=== PATIENT | male | born 2000 | race African-American/Black ===

== ENCOUNTER 2023-12-11 11:56 | Inpatient (IN) | payer BC ==
[2023-12-11 12:44] VITALS: BMI 21.6
[2023-12-11] MEDS ORDERED: ONDANSETRON *ODT* 4 MG TABLET SL PRN (14:03)
[2023-12-11] MEDS ORDERED: NALOXONE HCL (KLOXXADO) 8 MG SPRAY NS PRN (14:03)
[2023-12-11] MEDS ORDERED: IBUPROFEN 600 MG TABLET (FP) PO PRN (14:03)
[2023-12-11] MEDS ORDERED: IBUPROFEN 400 MG TABLET (FP) PO PRN (14:03)
[2023-12-11] MEDS ORDERED: METHOCARBAMOL 500 MG TABLET PO PRN (14:03)
[2023-12-11] MEDS ORDERED: BENZOCAINE/MENTHOL (CHLORASEPTIC ) LOZENGE MM PRN (14:03)
[2023-12-11] MEDS ORDERED: POLYETHYLENE GLYCOL (HEALTHYLAX) 3350 17 GM PACKET PO PRN (14:03)
[2023-12-11] MEDS ORDERED: DICYCLOMINE HCL 10 MG CAPSULE PO PRN (14:03)
[2023-12-11] MEDS ORDERED: BISMUTH SUBSALICYLATE 262 MG/15 ML BTL PO PRN (14:03)
[2023-12-11] MEDS ORDERED: BENZONATATE 200 MG CAPSULE PO PRN (14:03)
[2023-12-11] MEDS ORDERED: NALOXONE HCL 0.4 MG/ML VIAL IM PRN (14:03)
[2023-12-11] MEDS ORDERED: MAG HYDROX/AL HYDROX/SIMETH 30 ML UNIT-DOSE CUP PO PRN (14:03)
[2023-12-11] MEDS ORDERED: ACETAMINOPHEN 325 MG TABLET (FP) PO PRN (14:03)
[2023-12-11] MEDS ORDERED: LOPERAMIDE HCL 2 MG CAPSULE PO PRN (14:03)
[2023-12-11] MEDS ORDERED: guaiFENesin 600 MG TABLET.ER (FP) PO PRN (14:03)
[2023-12-11] MEDS ORDERED: MAGNESIUM HYDROX 2400MG/30ML ORAL SUSPENSION 30 ML CUP PO PRN (14:03)
[2023-12-11] MEDS ORDERED: hydrOXYzine PAMOATE 25 MG CAPSULE (FP) PO PRN (14:03)
[2023-12-11] MEDS ORDERED: ALBUTEROL SO4 HFA INHALER IH PRN (14:07)
[2023-12-11] MEDS ORDERED: hydrOXYzine PAMOATE 25 MG CAPSULE (FP) PO ONE (14:20)
[2023-12-11] MEDS: NICOTINE POLACRILEX 2 MG GUM BUC PRN (20:41)
[2023-12-11] MEDS: THIAMINE HCL 100 MG TABLET (FP) PO SCH (22:25)
[2023-12-11] MEDS: MELATONIN 5 MG TABLETS PO SCH (22:25)
[2023-12-12] MEDS: NICOTINE 14 MG/24 HOURS TOPICAL PATCH TD SCH (10:06)
[2023-12-12] MEDS: PRENATAL VITAMINS W/ FOLIC ACID TABLET (FP) PO SCH (10:07)
[2023-12-12 12:02] LABS: HEMATOCRIT 42.3 % (35.4-49); HEMOGLOBIN 13.6 GM/dL (11.7-16.9); MCH 25.7 pg (25.7-33.7); MCHC 32.1 g/dl (32.0-35.9); MEAN PLT VOLUME 7.9 fl (7.5-11.1); PLATELET COUNT 304 10^3/uL (134-434); RBC 5.29 M/mm3 (4.00-5.60); RDW 14.3 % (11.9-15.9); WHITE BLOOD COUNT 3.8 K/mm3 (4.0-10.0)
[2023-12-12 12:06] LABS: CHLORIDE 104 mmol/L (98-107); POTASSIUM 4.5 mmol/L (3.5-5.1); SODIUM 140 mmol/L (136-145)
[2023-12-12 12:13] LABS: ALBUMIN 4.2 g/dl (3.4-5.0); BLOOD UREA NITROGEN 12.3 mg/dL (7-18)
[2023-12-12 12:15] LABS: ANION GAP 10 mmol/L (4-13); CO2 26 mmol/L (21-32); GLUCOSE,RANDOM 77 mg/dL (74-106)
[2023-12-12 12:16] LABS: CREATININE 0.9 mg/dL (0.55-1.3); SGOT/AST 38 U/L (15-37); SGPT/ALT 25 U/L (13-61)
[2023-12-12 12:18] LABS: TOT PROT 7.8 g/dl (6.4-8.2)
[2023-12-12 12:19] LABS: ALK PHOS 101 U/L (45-117)
[2023-12-13 09:16] VITALS: RESP 20
[2023-12-13 09:19] VITALS: BP 109/67; PULSE 78; TEMP 98
== END 2023-12-13 08:55 | disposition home or self-care (01) | DRG 897 ==
LOC: YASAS 11:56 → Y6N 14:29
PROVIDERS: ADMIT Allergy & Immunology; ATTEND Surgery
PROC: HZ2ZZZZ Detoxification Services for Substance Abuse Treatment (ICD-10-PCS; principal; 2023-12-11)
DX: F10.230 Alcohol dependence with withdrawal, uncomplicated (principal); F12.20 Cannabis dependence, uncomplicated; F17.210 Nicotine dependence, cigarettes, uncomplicated; F10.282 Alcohol dependence with alcohol-induced sleep disorder; G47.00 Insomnia, unspecified; J45.909 Unspecified asthma, uncomplicated; R94.31 Abnormal electrocardiogram [ECG] [EKG]; Z87.19 Personal history of other diseases of the digestive system
CPT/HCPCS: 36415; 80053; 80305; 80307; 85027; 86780; 87811; 93005; 93010

== ENCOUNTER 2023-12-11 16:11 | Emergency (ER) | payer BC ==
[2023-12-11 16:21] VITALS: BP 119/69; PULSE 78; TEMP 98.2; BMI 21.6
[2023-12-11 16:24] VITALS: RESP 16
== END 2023-12-11 18:46 | disposition short-term general hospital (02) ==
LOC: JER 16:11
DX: I49.8 Other specified cardiac arrhythmias (principal)
CPT/HCPCS: 71045-TC-FY; 99284-25